=== PATIENT | male | born 1930 | race Caucasian/White ===

== ENCOUNTER 2018-01-29 08:47 | Inpatient (IN) | payer MEDICARE, OTHER, MEDICAID ==
[~2018-01-29 08:47] MED LIST: ETOMIDATE 20 MG INJ; SUCCINYLCHOLINE CHLORIDE 100 MG/5 ML SYG IV
[2018-01-29 09:24] LABS: ADD MAN DIFF? NO
[2018-01-29] MEDS: CEFEPIME 2GM/50 ML (PMX) 50 ML IVPB (09:26)
[2018-01-29] MEDS: ACETAMINOPHEN 650 MG SUPP PR (09:26)
[2018-01-29] MEDS: VANCOMYCIN 1 GM (PMX) 250 ML IVPB ×2 (09:26→09:59)
[2018-01-29] MEDS: SODIUM CHLORIDE 0.9% 1L BAG IV* (09:27)
[2018-01-29 09:30] LABS: WHITE BLOOD COUNT 12.3 10^3/ul (4.8-10.8)
[2018-01-29 09:30] LABS: ABNORMAL IP MESSAGE 1; BASOPHILS % 0.2 % (0.0-2.0); HEMATOCRIT 37.7 % (42.0-52.0); HEMOGLOBIN 11.5 g/dl (14.0-18.0); LYMPHOCYTES # 0.3 10^3/ul (0.8-2.9); LYMPHOCYTES % 2.6 % (15.0-51.0); MEAN CORPUSCULAR HEMOGLOBIN 23.3 pg (29.0-33.0); MEAN CORPUSCULAR HGB CONC 30.5 g/dl (32.0-37.0); MEAN CORPUSCULAR VOLUME 76.3 fl (82.0-101.0); MEAN PLATELET VOLUME 11.1 fl (7.4-10.4); MONOCYTE # 0.8 10^3/ul (0.3-0.9); MONOCYTES % 6.3 % (0.0-11.0); NEUTROPHIL # 11.1 10^3/ul (1.6-7.5); NEUTROPHILS % 90.4 % (39.0-77.0); PLATELET COUNT 501 10^3/UL (140-415); POSITIVE DIFF @See below; RED BLOOD COUNT 4.94 10^6/ul (4.70-6.10); RED CELL DISTRIBUTION WIDTH 16.5 % (11.5-14.5)
[2018-01-29] MEDS: SOD CHLORIDE 0.9% 1,000 ML IV ×3 (09:32→22:06)
[2018-01-29 09:43] LABS: ADD UMIC YES; UR ASCORBIC ACID NEGATIVE (NEGATIVE); UR BACTERIA FEW /HPF (NONE SEEN); UR BILIRUBIN (Dip) NEGATIVE (NEGATIVE); UR BLOOD (Dip) 1+ mg/dL (NEGATIVE); UR CLARITY CLOUDY (CLEAR); UR COLOR AMBER (YELLOW); UR GLUCOSE (Dip) 1+ mg/dL (NEGATIVE); UR KETONES (Dip) 1+ mg/dL (NEGATIVE); UR LEUKOCYTE ESTERASE (Dip) NEGATIVE Leu/ul (NEGATIVE); UR MUCUS MANY /HPF (NONE SEEN); UR NITRITE (Dip) NEGATIVE (NEGATIVE); UR RBC 3 /HPF (0-5); UR SPECIFIC GRAVITY (Dip) 1.025 (1.003-1.030); UR SQUAMOUS EPITHELIAL CELL FEW /HPF (FEW); UR TOTAL PROTEIN (Dip) 2+ mg/dl (NEGATIVE); UR UROBILINOGEN (Dip) 2+ mg/dL (NEGATIVE); UR WBC 9 /HPF (0-5)
[2018-01-29 09:49] LABS: ALANINE AMINOTRANSFERASE 27 IU/L (13-69); ALBUMIN 3.3 g/dl (3.3-4.9); ALBUMIN/GLOBULIN RATIO 0.94; ALKALINE PHOSPHATASE 110 IU/L (42-121); ANION GAP 13 (5-13); ASPARTATE AMINO TRANSFERASE 29 IU/L (15-46); BILIRUBIN,INDIRECT 0.6 mg/dl (0-1.1); BILIRUBIN,TOTAL 0.6 mg/dl (0.2-1.3); BLOOD UREA NITROGEN 50 mg/dl (7-20); CALCIUM 8.8 mg/dl (8.4-10.2); CARBON DIOXIDE 22 mmol/L (21-31); CHLORIDE 116 mmol/L (97-110); GLUCOSE 137 mg/dl (70-220); POTASSIUM 3.9 mmol/L (3.5-5.1); SODIUM 151 mmol/L (135-144); TOTAL PROTEIN 6.8 g/dl (6.1-8.1)
[2018-01-29 09:52] LABS: INR 1.23; PARTIAL THROMBOPLASTIN TIME 27.6 Sec (23.0-35.0); PROTIME 15.7 Sec (11.9-14.9); PT RATIO 1.2
[2018-01-29] MEDS ORDERED: VANCOMYCIN IV PER PHARMACY XX (10:00)
[2018-01-29] MEDS ORDERED: ACETAMINOPHEN 325 MG TAB PO (10:00)
[2018-01-29] MEDS ORDERED: ONDANSETRON 4 MG INJ IV ×2 (10:00)
[2018-01-29] MEDS ORDERED: ALBUTEROL/IPRATROPIUM (NEB) 3 ML AMP NEB (10:00)
[2018-01-29] MEDS ORDERED: ACETAMINOPHEN 650 MG SUPP PR (10:00)
[2018-01-29] MEDS ORDERED: NACL 0.9% 3 ML SYG IV (10:00)
[2018-01-29 10:05] LABS: TROPONIN-I 0.265 ng/ml (0.000-0.120)
[2018-01-29 10:28] LABS: AADO2 Arterial 346.7 mmHg (7.0-24.0); Allen Test ACCEPTAB; Arterial Base Excess -4.8 mmol/L (-3.0-3); Arterial Blood Gas Oxygen Sat 98.8 mmHG (95.0-100.0); Arterial COHb 0.3 % (0.0-3.0); Arterial HCO3 19.5 mmol/L (22.0-26.0); Arterial MetHb 0.5 % (0.0-1.5); Arterial Total Hemglobin 11.7 g/dl (12.0-18.0); Arterial pCO2 33.5 mmhg (35-45); Blood Gas IEPAP 15/5; MODE MASK - BIPAP; Site Right Radial
[2018-01-29] MEDS: LORAZEPAM 2 MG INJ IV (11:14)
[2018-01-29] MEDS: ALBUTEROL/IPRATROPIUM (NEB) 3 ML AMP NEB ×3 (13:00→21:27)
[2018-01-29] MEDS: MEROPENEM 1 GM/50ML(PMX) 50 ML IVPB ×2 (15:30→20:36)
[2018-01-29] MEDS: ENOXAPARIN 60 MG/0.6 ML SYG SC (15:31)
[2018-01-29] MEDS: ASPIRIN 300 MG SUPP PR (17:10)
[2018-01-29] MEDS: AMIODARONE 900 MG in DEXTROSE 5% 482 ML IV (17:11)
[2018-01-29] MEDS: AMIODARONE 150MG/D5W BOLUS 100 ML IV (17:11)
[2018-01-30] MEDS: ALBUTEROL/IPRATROPIUM (NEB) 3 ML AMP NEB ×6 (01:26→20:16)
[2018-01-30] MEDS: LORAZEPAM 2 MG INJ IV (02:30)
[2018-01-30] MEDS: SOD CHLORIDE 0.9% 1,000 ML IV (02:30)
[2018-01-30 05:26] LABS: ABNORMAL IP MESSAGE 1; HEMATOCRIT 30.4 % (42.0-52.0); HEMOGLOBIN 9.4 g/dl (14.0-18.0); MEAN CORPUSCULAR HEMOGLOBIN 23.6 pg (29.0-33.0); MEAN CORPUSCULAR HGB CONC 30.9 g/dl (32.0-37.0); MEAN CORPUSCULAR VOLUME 76.2 fl (82.0-101.0); MEAN PLATELET VOLUME 11.4 fl (7.4-10.4); PLATELET COUNT 319 10^3/UL (140-415); POSITIVE DIFF @See below; RED BLOOD COUNT 3.99 10^6/ul (4.70-6.10); RED CELL DISTRIBUTION WIDTH 16.5 % (11.5-14.5)
[2018-01-30 05:29] LABS: ADD MAN DIFF? YES
[2018-01-30 05:50] LABS: HEMOGLOBIN A1C 5.5 % (0-5.9)
[2018-01-30] MEDS: PANTOPRAZOLE 40 MG INJ IV (05:51)
[2018-01-30] MEDS: VANCOMYCIN 750 MG in SOD CHLORIDE 0.9% 150 ML IVPB (05:51)
[2018-01-30 05:56] LABS: CREATINE KINASE 31 IU/L (23-200)
[2018-01-30 05:59] LABS: CHOL/HDL RATIO 3.9 RATIO; CHOLESTEROL 94 mg/dl (100-200); HDL CHOLESTEROL 24 mg/dl (31-75); LDL CHOLESTEROL,CALCULATED 53 mg/dl; TRIGLYCERIDES 85 mg/dl (0-149)
[2018-01-30 05:59] LABS: MAGNESIUM 1.9 mg/dl (1.7-2.5)
[2018-01-30] MEDS ORDERED: VANCOMYCIN 1 GM 250 ML IVPB (06:00)
[2018-01-30 06:05] LABS: B-TYPE NATRIURETIC PEPTIDE 11700 PG/ML (0-450)
[2018-01-30 06:09] LABS: CK INDEX 11.2
[2018-01-30 06:13] LABS: FREE T4 (FREE THYROXINE) 1.41 ng/dl (0.85-1.93)
[2018-01-30 06:18] LABS: CK-MB 3.48 ng/ml (0.0-2.4); TROPONIN-I 0.347 ng/ml (0.000-0.120)
[2018-01-30 06:55] LABS: ALANINE AMINOTRANSFERASE 23 IU/L (13-69); ALBUMIN 2.5 g/dl (3.3-4.9); ALBUMIN/GLOBULIN RATIO 0.83; ALKALINE PHOSPHATASE 85 IU/L (42-121); ANION GAP 8 (5-13); ASPARTATE AMINO TRANSFERASE 21 IU/L (15-46); BILIRUBIN,INDIRECT 0.2 mg/dl (0-1.1); BILIRUBIN,TOTAL 0.2 mg/dl (0.2-1.3); BLOOD UREA NITROGEN 52 mg/dl (7-20); CALCIUM 7.9 mg/dl (8.4-10.2); CARBON DIOXIDE 22 mmol/L (21-31); CHLORIDE 121 mmol/L (97-110); GLUCOSE 142 mg/dl (70-220); SODIUM 151 mmol/L (135-144); TOTAL PROTEIN 5.5 g/dl (6.1-8.1)
[2018-01-30 07:22] LABS: ANISOCYTOSIS 1+ (0-0); BAND NEUTROPHILS #M 4.2 10^3/ul (0.0-0.6); BAND NEUTROPHILS % (M) 42 % (0-4); BURR CELLS 3+ (0-0); GIANT THROMBO% (M) 2 % (0-0); LYMPHOCYTES #M 0.8 10^3/ul (0.8-2.9); LYMPHOCYTES % (M) 8 % (15-51); MICROCYTOSIS 1+ (0-0); MONOCYTE #M 0.2 10^3/ul (0.3-0.9); MONOCYTES % (M) 2 % (0-11); OVALOCYTES 2+ (0-0); PLATELET ESTIMATE NORMAL; POIKILOCYTOSIS 3+ (0-0); POLYCHROMASIA 1+ (0-0); SEG NEUT #M 5.2 10^3/ul (1.6-7.5); SEGMENTED NEUTROPHILS (M) % 48 % (39-77); SMUDGE%M 3 % (0-0)
[2018-01-30 07:52] LABS: AADO2 Arterial 176.5 mmHg (7.0-24.0); Allen Test ACCEPTAB; Arterial Base Excess -2.5 mmol/L (-3.0-3); Arterial Blood Gas Oxygen Sat 98.2 mmHG (95.0-100.0); Arterial COHb 0.3 % (0.0-3.0); Arterial Fraction of Oxyhgb 97.6 % (93.0-99.0); Arterial HCO3 20.2 mmol/L (22.0-26.0); Arterial MetHb 0.3 % (0.0-1.5); Arterial Total Hemglobin 10.7 g/dl (12.0-18.0); Arterial pCO2 28.2 mmhg (35-45); Blood Gas IEPAP 15/5; Blood Gas PS 10; MODE MASK - BIPAP; Site Right Radial
[2018-01-30] MEDS: INFLUENZA VIRUS VACCINE 0.5 ML (DISPENSING) IM* (09:00)
[2018-01-30] MEDS: MAGNESIUM SULFATE 2 GM/50 ML 50 ML IVPB (10:03)
[2018-01-30] MEDS: ASPIRIN 300 MG SUPP PR (10:05)
[2018-01-30] MEDS: ENOXAPARIN 40 MG/0.4 ML SYG SC (10:05)
[2018-01-30] MEDS: MEROPENEM 1 GM/50ML(PMX) 50 ML IVPB (11:02)
[2018-01-30] MEDS: LIDOCAINE 1% (MPF) 5 ML VIAL SC (12:00)
[2018-01-30] MEDS: POTASSIUM CHLORIDE 50 ML IVPB ×3 (14:10→21:24)
[2018-01-30 15:04] LABS: LACTIC ACID 1.6 mmol/L (0.5-2.0)
[2018-01-30] MEDS: AMIODARONE 900 MG in DEXTROSE 5% 482 ML IV (16:16)
[2018-01-30] MEDS: BALSAM PERU/CASTOR OIL 60 GM TUBE TOP (16:34)
[2018-01-30] MEDS: DEXTROSE 5%-0.45% NACL 1,000 ML IV (18:07)
[2018-01-30 19:20] LABS: TROPONIN-I 0.298 ng/ml (0.000-0.120)
[2018-01-30] MEDS ORDERED: POTASSIUM CHLORIDE 50 ML ×2 (19:25→21:23)
[2018-01-30] MEDS: MEROPENEM 500MG/50 ML (PMX) 50 ML IVPB (21:24)
[2018-01-31] MEDS: ALBUTEROL/IPRATROPIUM (NEB) 3 ML AMP NEB ×6 (00:16→19:42)
[2018-01-31] MEDS: PANTOPRAZOLE 40 MG INJ IV (05:18)
[2018-01-31] MEDS: DEXTROSE 5%-0.45% NACL 1,000 ML IV ×2 (05:19→16:13)
[2018-01-31 05:20] LABS: ABNORMAL IP MESSAGE 1; HEMATOCRIT 29.1 % (42.0-52.0); HEMOGLOBIN 8.9 g/dl (14.0-18.0); MEAN CORPUSCULAR HEMOGLOBIN 23.1 pg (29.0-33.0); MEAN CORPUSCULAR HGB CONC 30.6 g/dl (32.0-37.0); MEAN CORPUSCULAR VOLUME 75.6 fl (82.0-101.0); MEAN PLATELET VOLUME 11.3 fl (7.4-10.4); PLATELET COUNT 313 10^3/UL (140-415); POSITIVE DIFF @See below; RED BLOOD COUNT 3.85 10^6/ul (4.70-6.10); RED CELL DISTRIBUTION WIDTH 17.2 % (11.5-14.5)
[2018-01-31 05:48] LABS: ALANINE AMINOTRANSFERASE 16 IU/L (13-69); ALBUMIN 2.6 g/dl (3.3-4.9); ALBUMIN/GLOBULIN RATIO 0.86; ALKALINE PHOSPHATASE 95 IU/L (42-121); ANION GAP 8 (5-13); ASPARTATE AMINO TRANSFERASE 20 IU/L (15-46); BILIRUBIN,INDIRECT 0.3 mg/dl (0-1.1); BILIRUBIN,TOTAL 0.3 mg/dl (0.2-1.3); BLOOD UREA NITROGEN 52 mg/dl (7-20); CALCIUM 8.9 mg/dl (8.4-10.2); CARBON DIOXIDE 22 mmol/L (21-31); CHLORIDE 122 mmol/L (97-110); CREATININE 1.54 mg/dl (0.61-1.24); GLUCOSE 131 mg/dl (70-220); MAGNESIUM 2.7 mg/dl (1.7-2.5); POTASSIUM 3.5 mmol/L (3.5-5.1); SODIUM 152 mmol/L (135-144); TOTAL PROTEIN 5.6 g/dl (6.1-8.1)
[2018-01-31 05:51] LABS: B-TYPE NATRIURETIC PEPTIDE 6420 PG/ML (0-450)
[2018-01-31 05:52] LABS: ADD MAN DIFF? YES
[2018-01-31 07:38] LABS: AADO2 Arterial 119.5 mmHg (7.0-24.0); Allen Test ACCEPTAB; Arterial Base Excess -2.9 mmol/L (-3.0-3); Arterial Blood Gas Oxygen Sat 92.2 mmHG (95.0-100.0); Arterial COHb 0.3 % (0.0-3.0); Arterial Fraction of Oxyhgb 91.6 % (93.0-99.0); Arterial MetHb 0.3 % (0.0-1.5); Arterial pCO2 28.5 mmhg (35-45); Blood Gas IEPAP 15/5; Blood Gas PS 10; MODE MASK - BIPAP; Site Right Radial
[2018-01-31 07:54] LABS: ANISOCYTOSIS 1+ (0-0); BAND NEUTROPHILS #M 4.3 10^3/ul (0.0-0.6); BAND NEUTROPHILS % (M) 29 % (0-4); BURR CELLS 2+ (0-0); LYMPHOCYTES #M 0.1 10^3/ul (0.8-2.9); LYMPHOCYTES % (M) 1 % (15-51); OVALOCYTES 1+ (0-0); PLATELET ESTIMATE NORMAL; POIKILOCYTOSIS 2+ (0-0); POLYCHROMASIA 1+ (0-0); SEG NEUT #M 11.1 10^3/ul (1.6-7.5); SEGMENTED NEUTROPHILS (M) % 70 % (39-77); SMUDGE%M 3 % (0-0)
[2018-01-31] MEDS: MEROPENEM 500MG/50 ML (PMX) 50 ML IVPB ×2 (08:03→21:13)
[2018-01-31] MEDS: BALSAM PERU/CASTOR OIL 60 GM TUBE TOP (08:03)
[2018-01-31] MEDS: POTASSIUM CHLORIDE 100 ML IVPB ×2 (08:14→11:34)
[2018-01-31] MEDS: ASPIRIN 300 MG SUPP PR (08:44)
[2018-01-31] MEDS: ENOXAPARIN 40 MG/0.4 ML SYG SC (08:47)
[2018-01-31 11:14] LABS: TROPONIN-I 0.221 ng/ml (0.000-0.120)
[2018-01-31] MEDS: morphine 2 MG INJ IV ×2 (16:03→19:32)
[2018-01-31] MEDS: VANCOMYCIN 750 MG in SOD CHLORIDE 0.9% 150 ML IVPB (17:45)
[2018-01-31] MEDS: AMIODARONE 900 MG in DEXTROSE 5% 482 ML IV (21:14)
[2018-01-31] MEDS: LORAZEPAM 2 MG INJ IV (21:14)
[2018-02-01] MEDS: morphine 2 MG INJ IV (03:21)
[2018-02-01] MEDS: ALBUTEROL/IPRATROPIUM (NEB) 3 ML AMP NEB ×4 (04:07→13:09)
[2018-02-01] MEDS: PANTOPRAZOLE (EC) 40 MG TAB PO (05:21)
[2018-02-01] MEDS: DEXTROSE 5%-0.45% NACL 1,000 ML IV (06:06)
[2018-02-01] MEDS: LORAZEPAM 2 MG INJ IV (06:20)
[2018-02-01] MEDS: ENOXAPARIN 30 MG/0.3 ML SYG SC (08:46)
[2018-02-01] MEDS: BALSAM PERU/CASTOR OIL 60 GM TUBE TOP (08:47)
[2018-02-01] MEDS: MEROPENEM 500MG/50 ML (PMX) 50 ML IVPB (08:49)
[2018-02-01] MEDS: ASPIRIN 300 MG SUPP PR (10:00)
== END 2018-02-01 17:30 | disposition expired | DRG 871 ==
LOC: 2NE 02-01 12:19 → E/R 08:47 → ICU 09:32
PROC: 5A09457 Assistance with Respiratory Ventilation, 24-96 Consecutive Hours, Continuous Positive Airway Pressure (ICD-10-PCS; principal; 2018-01-29)
PROC: 02HV33Z Insertion of Infusion Device into Superior Vena Cava, Percutaneous Approach (ICD-10-PCS; 2018-01-30)
DX: A41.9 Sepsis, unspecified organism (principal); L89.153 Pressure ulcer of sacral region, stage 3; J96.22 Acute and chronic respiratory failure with hypercapnia; J96.21 Acute and chronic respiratory failure with hypoxia; J69.0 Pneumonitis due to inhalation of food and vomit; G92 Toxic encephalopathy; I21.A1 Myocardial infarction type 2; N17.9 Acute kidney failure, unspecified; E87.1 Hypo-osmolality and hyponatremia; E87.2 Acidosis; E44.0 Moderate protein-calorie malnutrition; R64 Cachexia; Z68.1 Body mass index [BMI] 19.9 or less, adult; R65.20 Severe sepsis without septic shock; D64.9 Anemia, unspecified; E87.6 Hypokalemia; F41.9 Anxiety disorder, unspecified; F32.9 Major depressive disorder, single episode, unspecified; G30.9 Alzheimer's disease, unspecified; F02.80 Dementia in other diseases classified elsewhere, unspecified severity, without behavioral disturbance, psychotic disturbance, mood disturbance, and anxiety; I10 Essential (primary) hypertension; I48.0 Paroxysmal atrial fibrillation; M47.814 Spondylosis without myelopathy or radiculopathy, thoracic region; N40.0 Benign prostatic hyperplasia without lower urinary tract symptoms; R13.10 Dysphagia, unspecified; Z66 Do not resuscitate; Z74.01 Bed confinement status
CPT/HCPCS: 36415; 36569; 36600; 71045; 76937; 80053; 80061; 81001; 82550; 82553; 82803; 83036; 83605; 83735; 83880; 84439; 84443; 84484; 85025; 85610; 85730; 87040; 87070; 87086; 90686; 93005; 93306; 94640; 94660; 94664; 96374; 99291-25